=== PATIENT | female | born 1965 | race Caucasian/White ===

== ENCOUNTER → 2023-04-05 | Outpatient (CLI) | payer BC ==
--- NOTE | 2023-04-06 20:28 | MM ---
Reason for Exam: Hx of breast augmentation, asymptomatic. Last mammogram was performed 1 year(s) and 2 month(s) ago. Patient History: Menarche at age 15. First Full-Term at age 29. Postmenopausal. US biopsy breast VAD LT - 2 on the Left side. Bilateral Implants. Risk Values: Alix 5 year model risk: 1.6%. NCI Lifetime model risk: 10.4%. Prior Study Comparison: 06/20/2019 Bilateral MG 3D screening mammo w/cad, [facility]. 11/20/2020 Bilateral MG 3D screening mammo w/cad, [facility]. [facility]20[facility] Tissue Density: The breast tissue is heterogeneously dense. This may lower the sensitivity of mammography. Findings: Analyzed By CAD. Bilateral retropectoral saline implants are demonstrated. Microclip 6:00 anterior left breast from prior biopsy. Unchanged small intramammary lymph node superior posterior left breast. There is no suspicious group of microcalcifications or new suspicious mass in either breast. Overall Assessment: Benign, BI-RAD 2 Management: Screening Mammogram of both breasts in 1 year. . Patient should continue monthly self-breast exams. A clinical breast exam by your physician is recommended on an annual basis. This exam should not preclude additional follow-up of suspicious palpable abnormalities. Note on Alix scores and lifetime risk: 1. A Alix score greater than 3% is considered moderate risk. If this is the case, consider specialist referral to assess eligibility for a risk reducing agent. 2. If overall lifetime risk for the development of breast cancer is 20% or higher, the patient may qualify for future screening with alternating mammogram and breast MRI. Electronically signed and approved by: Braxton Salmeron M.D. Radiologist
== END | disposition home or self-care (01) ==
LOC: RADMAMWWP 13:01
PROVIDERS: ATTEND Family Medicine
DX: Z12.31 Encounter for screening mammogram for malignant neoplasm of breast (principal); Z78.0 Asymptomatic menopausal state; Z98.82 Breast implant status
CPT/HCPCS: 77063; 77067

== ENCOUNTER → 2024-06-26 | Outpatient (CLI) | payer BC ==
--- NOTE | 2024-06-27 09:49 | MM ---
Reason for Exam: Screening (asymptomatic). Last mammogram was performed 1 year(s) and 3 month(s) ago. Patient History: Menarche at age 15. First Full-Term at age 29. Postmenopausal. US biopsy breast VAD LT - 2 on the Left side. Bilateral Implants. Risk Values: Alix 5 year model risk: 1.7%. NCI Lifetime model risk: 10.2%. Prior Study Comparison: 11/20/2020 Bilateral MG 3D screening mammo w/cad, [facility]. 01/28/2022 Bilateral MG 3D screening mammo w/cad, [facility]. 04/05/2023 Bilateral MG 3D screen mammo imp/cad., [facility]. Tissue Density: There are scattered areas of fibroglandular density. Findings: Analyzed By CAD. Bilateral breast implants appear intact. Right breast: There is no suspicious group of microcalcifications or new suspicious mass. Left breast: There is no suspicious group of microcalcifications or new suspicious mass. Overall Assessment: Negative, BI-RAD 1 Management: Screening Mammogram of both breasts in [address] [facility] will attempt to contact patient to return for supplemental views and ultrasound if indicated. Patient should continue monthly self-breast exams. A clinical breast exam by your physician is recommended on an annual basis. This exam should not preclude additional follow-up of suspicious palpable abnormalities. Note on Alix scores and lifetime risk: 1. A Alix score greater than 3% is considered moderate risk. If this is the case, consider specialist referral to assess eligibility for a risk reducing agent. 2. If overall lifetime risk for the development of breast cancer is 20% or higher, the patient may qualify for future screening with alternating mammogram and breast MRI. [facility], , 06/27/2024 9:46 AM. Electronically signed and approved by: Filiberto Auguste DO
== END | disposition home or self-care (01) ==
LOC: RADMAMWWP 13:02
PROVIDERS: ATTEND Obstetrics & Gynecology
CPT/HCPCS: 77063; 77067